=== PATIENT | female | born 1955 | race Caucasian/White ===

== ENCOUNTER 2018-12-20 13:17 | Inpatient (IN) ==
[2018-12-20] MEDS ORDERED: ASPIRIN CHEW 324 MG PO STA (14:57)
--- NOTE | 2018-12-20 15:18 | XRay Report ---
XR chest 1V portable HISTORY: 63 years-old Female Chest Pain acute atypical chest pain COMPARISON: Chest radiograph 02/16/2015 TECHNIQUE: Portable AP view the chest FINDINGS: Cardiomediastinal and hilar silhouettes are within normal limits. Calcified plaque of the thoracic ao rtic arch. No pneumothorax, pleural effusion, overt pulmonary edema or focal airspace consolidation. Mild right hemidiaphragmatic elevation. Degenerative changes of the shoulders and spine. IMPRESSION: No acute process. The above report was generated using voice recognition software. It may contain grammatical, syntax o r spelling errors. Electronically signed by: Triston Farooq M.D. 12/20/2018 3:17 PM
[2018-12-20 15:41] LABS: Basophils # (auto) 0.02 K/uL (0-0.2); Basophils % (auto) 0.3 %; Eosinophils # (auto) 0.08 K/uL (0-0.5); Eosinophils % (auto) 1.3 %; Hematocrit (blood only) 46.4 % (37-47); Hemoglobin 16.4 g/dL (12.0-16.0); Immature Granulocytes # (auto) 0.01 K/uL (0.00-0.02); Immature Granulocytes % (auto) 0.2 %; Lymphocytes % (auto) 30.2 %; Mean Corpuscular Hemoglobin 33.5 pg (25-34); Mean Corpuscular Hgb Conc 35.3 g/dL (32-36); Mean Corpuscular Volume 94.7 fL (80-100); Mean Platelet Volume 10.4 fL (7.4-10.4); Monocytes # (auto) 0.39 K/uL (0.11-0.59); Monocytes % (auto) 6.2 %; Neutrophils % (auto) 61.8 %; Platelet Count 218 K/uL (130-400); RDW Coefficient of Variation 13.6 % (11.5-14.5); RDW Standard Deviation 46.6 fL (36.4-46.3)
[2018-12-20 15:49] LABS: Albumin Level 3.9 gm/dl (3.4-5.0); BUN Creatinine Ratio 19.9 (10-20); Calcium 9.2 mg/dl (8.5-10.1); Creatinine Clr Calc Pharmacy 80.3 ml/min; Est GFR (African American) 85.8
[2018-12-20 15:50] LABS: Partial Thromboplastin Ratio 0.9; Partial Thromboplastin Time 24.9 Seconds (21.0-31.0); Prothrombin Time 10.3 Seconds (9.0-12.0)
[2018-12-20 16:08] LABS: Bilirubin,Total 0.5 mg/dl (0.2-1); Globulin 3.8 gm/dl (2.5-4.0); Total Protein 7.7 gm/dl (6.4-8.2); Troponin I 0.651 ng/ml (0-0.045)
--- NOTE | 2018-12-20 16:22 | History & Physical Report ---
Date of Service December 20, 2018 Assessment & Plan (1) NSTEMI (non-ST elevated myocardial infarction): This is a 63yo F with a PMH of OCHOA, venous insufficiency, DDD and other medical problems listed below who presents with chest pain beginning x 3 days and was found to have hypertensive urgency and elevated troponin. -Exertional chest pain for the past few days with radiation down arms into back -No personal history of CAD but father of [place] at age 72 -Troponin slightly elevated at 0.651. ED provider concerned for some some ST segment depressions in a posterior wall distribution that improved by the time of second EKG -Heparin initiated in ED. Plan to continue -Will add ntg 1" paste for chest pain and hypertension -Monitor on telemetry, trend troponin, baby aspirin -NPO after midnight -Cardiology consult (2) Hypertensive urgency: BP initially 205/105, has improved to 168/98. No documented history of HTN but states BP has been higher with weight gain since gastric bypass -No headache, nausea, vomiting or evidence of kidney injury -Chest pain persisted even after BP improved -Continue ntg paste, IV Labetalol PRN for SBP >170 DVT Ppx: IV heparin Code status: FULL per discussion with patient PCP: Used to follow with Dr. Beasley. Needs to establish with new PCP Dispo: Admitted to telemetry. Plan to return home once medically stable. Patient seen in collaboration with Dr. Avila. Please see addendum. History of Present Illness Chief Complaint: chest pain Primary Care Provider: NO PCP This is a 63yo F with a PMH of OCHOA, venous insufficiency, DDD and other medical problems listed below who presents with chest pain beginning x 3 days. Has had intermittent chest heaviness and pain in arms in the past but it has become more frequent and severe over the past few days. Describes chest pain as heaviness with radiation to back, in between shoulder blades as well as bilateral arms. Pain increases with exertion and improves with rest. Episodes last up to 30 minutes. Some associated diaphoresis. Denies nausea, vomiting or shortness of breath. Denies fever, chills, lightheadedness, dizziness, cough, wheezing, SOB, nausea, vomiting, abdominal pain, dysuria, diarrhea or constipation. Has intermittent leg swelling that is at baseline. Denies personal history of CAD but father from [place] at age 70. Allergies Allergy/AdvReac Type Severity Reaction Status Date / Time No Known Allergies Allergy Verified 12/20/18 15:45 Home Medications Home Medications Medication Instructions Recorded Confirmed Type calcium carbonate [Calcium 500] 500 mg PO DAILY 12/20/18 12/20/18 History multivitamin 1 tab PO DAILY 12/20/18 12/20/18 History Past Med/Surg History Medical History Slow transit constipation (Chronic) OCHOA (nonalcoholic steatohepatitis) (Chronic) Venous insufficiency (Chronic) Mixed incontinence (Chronic) Surgical History History of gastric bypass (Chronic) Status post right knee replacement (Chronic) Family History Other Diabetes Heart disease Social History Preferred Language: French Feels Safe at Home: Yes Smoking Status: Former smoker Smoking End Date: 1978 ; Hx Alcohol Use: Yes Alcohol Intake Frequency: Rarely Review of Systems Review of Systems: At least ten systems reviewed and negative except as noted in the HPI. Physical Exam Physical Exam: General Appearance: WD/WN, vitals as above, NAD, sitting up in bed, pleasant, conversing easily, obese Head: normocephalic, atraumatic Eyes: normal inspection, PERRL, conjunctivae normal, anicteric sclerae ENT: external ear and nose normal, oropharynx normal Neck: trachea midline, no thyromegaly normal visual inspection Respiratory: lungs clear to auscultation, no wheeze, rales, rhonchi. Normal insp/exp effort, no accessory muscle use Cardiovascular: regular rate, rhythm, no murmur, normal peripheral pulses, 1+ BLE edema. Vessels: no JVD or carotid bruit Chest: normal inspection of chest. No chest pain to palpation Abdomen/GI: normal bowel sounds, soft, nontender, no hepatosplenomegaly Extremities/Musculoskelatal: no cyanosis or clubbing, extremities motor strength 5/5 Neurologic: PERRL, EOMI, accommodation nl, no face palsy, no dysarthria CN's II-XI intact bilaterally and moves all extremities Psychiatric: A+Ox3, euthymic affect Skin: no rashes, normal color, warm/dry Results & Data Vital Signs (Past 12 Hours) Vital Signs Temp Pulse Pulse Resp BP BP Pulse Ox 12/20/18 14:49 71 18 144/90 H 95 12/20/18 13:26 36.7 C 80 22 203/105 H 96 Laboratory Results Short CBC 12/20/18 Range/Units 15:25 WBC 6.30 (4.8-10.8) K/uL Hgb 16.4 H (12.0-16.0) g/dL Hct 46.4 (37-47) % Plt Count 218 (130-400) K/uL BMP 12/20/18 15:25 Sodium 139 Potassium 4.0 Chloride 105 Carbon Dioxide 27 BUN 17 Creatinine 0.83 Glucose 97 Calcium 9.2 Cardiac Enzymes 12/20/18 Range/Units 15:25 Troponin I 0.651 H* (0-0.045) ng/ml Liver Function 12/20/18 Range/Units 15:25 Total Bilirubin 0.5 (0.2-1) mg/dl AST 27 (15-37) U/L ALT 37 (12-78) U/L Alkaline Phosphatase 130 H (45-117) U/L Albumin 3.9 (3.4-5.0) gm/dl Diagnostic Findings CXR: IMPRESSION: No acute process. ECG Rhythm: normal sinus Findings: + nonspecific-ST abn Change: no significant change Supervising Physician Co-Signing Physician Notes Patient is a 63-year-old female with history of Ochoa, chronic venous insufficiency and other problems presents with history of intermittent chest pain radiating to back, upper extremities which increases with exertion and decreases with rest since 3 days duration. Reports associated diaphoresis. Currently rates the pain as pressure-like sensation, 2/10 intensity. Troponin elevated at 0.65 while in ED. Initial EKG showed nonspecific ST and T wave abnormality. Patient is started on IV heparin while in ED for possible NSTEMI. On exam patient is obese, no apparent distress, normocephalic atraumatic, lungs are clear to auscultation, S1-S2, no murmur, abdomen soft nontender, grossly no focal neurological deficits, chronic venous stasis changes, 1+ bilateral lower extremity edema. Patient is admitted for management of chest pain rule out ACS. Agree with aspirin, IV heparin, nitroglycerin, cardiology consulted. Check resting echo. Hypertension likely contributing to chest pain. Labetalol as needed for hypertension. I personally reviewed the record. Patient is interviewed and examined at bedside. Patient's care is coordinated with Carol Pankaj PA-C. Please refer to the documentation above for details of patient's presentation and for discussion of other issues.
[2018-12-20] MEDS ORDERED: HEPARIN SOD (PORCINE) 1000 UNIT/ML 10 ML VIAL ONE (16:25)
[2018-12-20] MEDS: HEPARIN SODIUM/DEXTROSE 25,000 UNITS/500 ML BAG IV SCH (16:38)
--- NOTE | 2018-12-20 17:47 | Emergency Department Note ---
Entered by Sage Stacy acting as a scribe for Leland Lozano DO History of Present Illness General Chief complaint: Chest Pain Stated complaint: PAIN IN CHEST, ARMS, AND BACK Source: patient History of Present Illness Onset (ago): day(s) 3 Location: chest Pain Consistency: + intermittent Maximum Pain Intensity: 2 Quality: + other (chest pressure) Associated symptoms: + other (+bilateral arm pain; +back pain; -leg swelling; - abdominal pain ) The patient is a 63 year old female, with no significant past medical history, who presents to the Emergency Room with complaints of intermittent chest pressure over the last 3 days. The patient also reports of bilateral arm pain and neck pain. The patient states that nothing makes the pain better or worse. The patient denies taking anything for symptoms to this point. The patient states she currently does not have a PCP, as she notes her old PCP retired. The patient denies ever having a myocardial infarction, heart catheterization, or a stress test completed in the past. The patient also denies being on blood thinners. The patient notes very rare tobacco and alcohol use. The patient notes her legs are not more swollen than baseline, and the patient denies abdominal pain. Home Medications Home Medications Medication Instructions Recorded Confirmed Type calcium carbonate [Calcium 500] 500 mg PO DAILY 12/20/18 12/20/18 History multivitamin 1 tab PO DAILY 12/20/18 12/20/18 History Allergies Allergy/AdvReac Type Severity Reaction Status Date / Time No Known Allergies Allergy Verified 12/20/18 15:45 Past Med/Surg History Medical History Arthritis of right knee Family History Other No significant family history Social History Preferred Language: Spanish Feels Safe at Home: Yes Smoking Status: Former smoker Review of Systems See HPI for pertinent positives & negatives. and A total of 10 systems reviewed and were otherwise negative Physical Exam Vital Signs Vital Signs - 24 hr 12/20/18 13:26 12/20/18 14:49 12/20/18 14:57 Temperature 36.7 C Temperature Source Oral Sepsis Recent Fever Within 48 Hours No Sepsis New/Unexplained Change in Mental Status No Sepsis Action Taken by Nursing No Action Required Pulse Rate 80 74 Pulse Rate [Finger] 71 Pulse Rhythm [Finger] Regular Respiratory Rate 22 18 Respiratory Effort / Characteristics Non-Labored Non-Labored Respiratory Depth Normal Normal Respiratory Pattern Regular Regular Blood Pressure 203/105 H Blood Pressure [Right Arm] 144/90 H Blood Pressure Mean 137 Blood Pressure Mean [Right Arm] 108 Blood Pressure Position Sitting Blood Pressure Position [Right Arm] Sitting Pulse Oximetry 96 95 98 Oxygen Delivery Method Room Air Room Air Room Air Oxygen Flow Rate 0 12/20/18 16:00 Temperature Temperature Source Sepsis Recent Fever Within 48 Hours Sepsis New/Unexplained Change in Mental Status Sepsis Action Taken by Nursing Pulse Rate Pulse Rate [Finger] 80 Pulse Rhythm [Finger] Respiratory Rate 20 Respiratory Effort / Characteristics Respiratory Depth Respiratory Pattern Blood Pressure Blood Pressure [Right Arm] 166/90 H Blood Pressure Mean Blood Pressure Mean [Right Arm] 115 Blood Pressure Position Blood Pressure Position [Right Arm] Pulse Oximetry 96 Oxygen Delivery Method Room Air Oxygen Flow Rate GENERAL: Patient is awake, alert, and in no acute distress.Patient is resting comfortably and showing no signs of anxiety EYES: The conjunctivae are clear. The pupils are round and reactive. EARS, NOSE, MOUTH AND THROAT: The nose is without any evidence of any deformity. Mucous membranes are moist.Tongue is midline NECK: The neck is nontender and supple. RESPIRATORY: Normal respiratory effort is noted. There is no evidence of wheezing rhonchi or rales to auscultation. CARDIOVASCULAR: Regular rate and rhythm noted. There no murmurs rubs or gallops normal S1 normal S2 GASTROINTESTINAL: The abdomen is soft. Bowel sounds are present in all quadrants. Abdomen is nontender. MUSCULOSKELETAL/EXTREMITIES: There is no evidence of gross deformity. Full range of motion is noted in the hips and shoulders. SKIN: Pedal edema bilaterally with venous stasis changes noted. Skin was warm and dry. NEUROLOGIC: Patient is awake alert and oriented x3. Course 1455: Past medical records reviewed. The patient was evaluated in room B5. A complete history and physical exam was performed. 1603: I reviewed the patient's case with Dr. Avila-Jaqui King. Dr. Avila will evaluate the patient for further management. Consultations Consultation #1: I reviewed the patient's case with Dr. Avila-Jaqui King. Dr. Vangala will evaluate the patient for further management. Time: 16:03 Administered Medications Heparin Sodium/Dextrose (Heparin Sodium/Dextrose) 25,000 units in 500 mls @ 0.02 mls/hr IV .Q24H [facility]; Protocol Stop: 01/19/19 15:59 Last Admin: 12/20/18 16:38 Dose: 1,350 units/hr, 27 mls/hr Documented by: [id number] Cosigned by: [id number] Discontinued Medications Aspirin (Aspirin) 324 mg PO NOW STA Stop: 12/20/18 14:58 Last Admin: 12/20/18 16:38 Dose: 324 mg Documented by: [id number] Heparin Sodium (Porcine) (Heparin Iv Bolus) Confirm Administered Dose 10,000 units .ROUTE .[facility] Stop: 12/20/18 16:26 Last Admin: 12/20/18 16:38 Dose: 6,000 units Documented by: [id number] Cosigned by: [id number] Heparin Sodium/Dextrose () 1 ea IV NOW STA; Protocol Stop: 12/20/18 15:48 Last Admin: 12/20/18 16:42 Dose: Not Given Documented by: [id number] Medical Decision Making Differential Diagnosis Differential diagnosis: Etiologies such as cardiac ischemia, aortic dissection, pulmonary embolism, pneumonia, pneumothorax, musculoskeletal, infections, pericarditis, myocarditis, esophageal rupture, gastrointestinal, as well as others were entertained. Medical Records Attestation: I reviewed the patient's medical records. Home Medications Current Medication List: was personally reviewed by me Laboratory Data Attestation: I reviewed the patient's lab results. Result diagrams: 12/20/18 15:25 12/20/18 15:25 Lab Results 12/20/18 12/20/18 12/20/18 Range/Units 15:25 15:25 15:25 WBC 6.30 (4.8-10.8) K/uL RBC 4.90 (4.2-5.4) M/uL Hgb 16.4 H (12.0-16.0) g/dL Hct 46.4 (37-47) % MCV 94.7 (80-100) fL MCH 33.5 (25-34) pg MCHC 35.3 (32-36) g/dL RDW Std Deviation 46.6 H (36.4-46.3) fL RDW Coeff of Sim 13.6 (11.5-14.5) % Plt Count 218 (130-400) K/uL MPV 10.4 (7.4-10.4) fL Immature Gran % (Auto) 0.2 % Neut % (Auto) 61.8 % Lymph % (Auto) 30.2 % [place] % (Auto) 6.2 % Eos % (Auto) 1.3 % Baso % (Auto) 0.3 % Immature Gran # (Auto) 0.01 (0.00-0.02) K/uL Neut # (Auto) 3.90 (1.4-6.5) K/uL Lymph # (Auto) 1.90 (1.2-3.4) K/uL [place] # (Auto) 0.39 (0.11-0.59) K/uL Eos # (Auto) 0.08 (0-0.5) K/uL Baso # (Auto) 0.02 (0-0.2) K/uL PT 10.3 (9.0-12.0) Seconds INR 1.0 (0.9-1.1) APTT 24.9 (21.0-31.0) Seconds PTT Ratio 0.9 Sodium 139 (136-145) mmol/L Potassium 4.0 (3.5-5.1) mmol/L Chloride 105 (98-107) mmol/L Carbon Dioxide 27 (21-32) mmol/L Anion Gap 7.0 (3-11) BUN 17 (7-18) mg/dl Creatinine 0.83 (0.6-1.2) mg/dl Est Cr Clr Drug Dosing 80.3 ml/min Est GFR ( Amer) 85.8 Est GFR (Non-Af Amer) 74.0 BUN/Creatinine Ratio 19.9 (10-20) Glucose 97 (70-99) mg/dl Calcium 9.2 (8.5-10.1) mg/dl Total Bilirubin 0.5 (0.2-1) mg/dl AST 27 (15-37) U/L ALT 37 (12-78) U/L Alkaline Phosphatase 130 H (45-117) U/L POC Troponin I (0-0.045) ng/ml Troponin I 0.651 H* (0-0.045) ng/ml Total Protein 7.7 (6.4-8.2) gm/dl Albumin 3.9 (3.4-5.0) gm/dl Globulin 3.8 (2.5-4.0) gm/dl Albumin/Globulin Ratio 1.0 (0.9-2) Lipase 184 (73-393) U/L 12/20/18 Range/Units 15:30 WBC (4.8-10.8) K/uL RBC (4.2-5.4) M/uL Hgb (12.0-16.0) g/dL Hct (37-47) % MCV (80-100) fL MCH (25-34) pg MCHC (32-36) g/dL RDW Std Deviation (36.4-46.3) fL RDW Coeff of Sim (11.5-14.5) % Plt Count (130-400) K/uL MPV (7.4-10.4) fL Immature Gran % (Auto) % Neut % (Auto) % Lymph % (Auto) % [place] % (Auto) % Eos % (Auto) % Baso % (Auto) % Immature Gran # (Auto) (0.00-0.02) K/uL Neut # (Auto) (1.4-6.5) K/uL Lymph # (Auto) (1.2-3.4) K/uL [place] # (Auto) (0.11-0.59) K/uL Eos # (Auto) (0-0.5) K/uL Baso # (Auto) (0-0.2) K/uL PT (9.0-12.0) Seconds INR (0.9-1.1) APTT (21.0-31.0) Seconds PTT Ratio Sodium (136-145) mmol/L Potassium (3.5-5.1) mmol/L Chloride (98-107) mmol/L Carbon Dioxide (21-32) mmol/L Anion Gap (3-11) BUN (7-18) mg/dl Creatinine (0.6-1.2) mg/dl Est Cr Clr Drug Dosing ml/min Est GFR ( Amer) Est GFR (Non-Af Amer) BUN/Creatinine Ratio (10-20) Glucose (70-99) mg/dl Calcium (8.5-10.1) mg/dl Total Bilirubin (0.2-1) mg/dl AST (15-37) U/L ALT (12-78) U/L Alkaline Phosphatase (45-117) U/L POC Troponin I 0.49 H (0-0.045) ng/ml Troponin I (0-0.045) ng/ml Total Protein (6.4-8.2) gm/dl Albumin (3.4-5.0) gm/dl Globulin (2.5-4.0) gm/dl Albumin/Globulin Ratio (0.9-2) Lipase (73-393) U/L Imaging Data Radiologist's Impression: Radiology results as stated below per my review and the radiologist's interpretation: XR chest 1V portable HISTORY: 63 years-old Female Chest Pain acute atypical chest pain COMPARISON: Chest radiograph 02/16/2015 TECHNIQUE: Portable AP view the chest FINDINGS: Cardiomediastinal and hilar silhouettes are within normal limits. Calcified plaque of the thoracic aortic arch. No pneumothorax, pleural effusion, overt pulmonary edema or focal airspace consolidation. Mild right hemidiaphragmatic elevation. Degenerative changes of the shoulders and spine. IMPRESSION: No acute process. The above report was generated using voice recognition software. It may contain grammatical, syntax or spelling errors. Electronically signed by: Triston Farooq M.D. 12/20/2018 3:17 PM ECG Data Attestation: I personally reviewed and interpreted this ECG as follows: Indication: chest pain Rate (beats per minute): 76 Rhythm: normal sinus Findings: + LBBB and + ST depression; no PVC Comparison ECG Date: from (02/16/15) Change: the following changes noted (Ischemic changes are new) Additional Comments: REPEAT ECG: NSR, rate of 71. No ectopy. No acute ST segments. Improvement of earlier ST depression compared to earlier tracing. Blood Pressure Blood Pressure Findings: Elevated blood pressure Blood Pressure Disposition: further management by hospitalist ANDRE Perez The patient is a 63-year-old female who presented to the emergency department for an evaluation of intermittent chest pain. The patient describes chest pain across the chest as well as into both shoulders. The pain is intermittent and not always exertional. The patient had an EKG which showed initially some ST segment depressions in a posterior wall distribution. She was treated with aspirin in the emergency department. She was reevaluated multiple times. Her second EKG did reveal some improvement in the ST segment abnormality's. The patient was reevaluated multiple times. The patient was found to have a mild elevation in her troponin. For this reason she was started on IV heparin. I discussed patient's laboratory and radiographic studies with her. Because of her findings I also discussed this case with the on-call [facility] hospitalist group. They have agreed to evaluate the patient in the emergency department for further management and disposition. Impression & Plan Chest pain, Angina pectoris, unstable, Abnormal ECG, Elevated troponin Critical Care Time Critical Care Time: Yes Total Critical Care Time: 60 I have personally spent 60 minutes of critical care time in the direct management of this patient. This includes bedside care, interpretation of diagnostic studies, and testing, discussion with consultants, patient, and family members, and other required patient management activities. This 60 minutes is in excess of all separately billable procedures. Discharge Plan Visit Data Chief Complaint: Chest Pain Stated Complaint: PAIN IN CHEST, ARMS, AND BACK ED Provider: Leland Lozano Discharge Problem: Chest pain, Angina pectoris, unstable, Abnormal ECG, Elevated troponin Patient Disposition: Being Evaluated by Hospitalist Forms Stand Alone Forms: Call Back Authorization, [facility] Prescriptions Prescriptions: No Action multivitamin Tablet 1 tab PO DAILY RF: 0 calcium carbonate [Calcium 500] 500 mg calcium (1,250 mg) Tablet 500 mg PO DAILY RF: 0 Referrals Referrals: PCP,NO [Primary Care Provider] - Discharge Problem: Chest pain Qualifiers: Chest pain type: unspecified Qualified Code(s): R07.9 - Chest pain, unspecified The scribe's documentation has been prepared under my direction and personally reviewed by me in its entirety. I confirm that the note above accurately reflects all work, treatment, procedures, and medical decision making performed by me.
[2018-12-20] MEDS ORDERED: POLYETHYLENE (MIRALAX) 17 GM PACK PO PRN (20:37)
[2018-12-20] MEDS ORDERED: ONDANSETRON INJ 2 MG/ML 2 ML VIAL IV PRN (20:37)
[2018-12-20] MEDS ORDERED: LABETALOL HCL IV 5 MG/ML 20ML IV PRN (20:37)
[2018-12-20] MEDS ORDERED: ACETAMINOPHEN 325 MG TAB PO PRN (20:37)
[2018-12-20] MEDS ORDERED: PNEUMOCOCCAL POLYSACCHARIDES 25 MCG/0.5 ML VIAL/SYR IM ONE (21:15)
[2018-12-20] MEDS ORDERED: INFLUENZA VACCINE HIGH DOSE 65+ 0.5 ML SYR IM ONE (21:15)
[2018-12-20] MEDS ORDERED: PNEUMOCOCCAL ADMINISTRATION CHARGE ONE (21:15)
[2018-12-20] MEDS ORDERED: INFLUENZA ADMINISTRATION CHARGE ONE (21:15)
[2018-12-20] MEDS: NITROGLYCERIN 2% OINTMENT 30GM TUBE EXT SCH ×2 (21:25→23:28)
[2018-12-20 22:48] LABS: Partial Thromboplastin Time 54.6 Seconds (21.0-31.0)
[2018-12-21 03:54] LABS: Hematocrit (blood only) 42.9 % (37-47); Hemoglobin 14.6 g/dL (12.0-16.0); Mean Corpuscular Hemoglobin 32.1 pg (25-34); Mean Corpuscular Volume 94.3 fL (80-100); Mean Platelet Volume 10.2 fL (7.4-10.4); Platelet Count 209 K/uL (130-400); RDW Coefficient of Variation 13.4 % (11.5-14.5); RDW Standard Deviation 46.3 fL (36.4-46.3); Red Blood Count 4.55 M/uL (4.2-5.4); White Blood Count 5.48 K/uL (4.8-10.8)
[2018-12-21 04:16] LABS: BUN Creatinine Ratio 22.8 (10-20); Calcium 8.4 mg/dl (8.5-10.1); Creatinine Clr Calc Pharmacy 82.8 ml/min; Est GFR (African American) 89.7; Est GFR (Non-African American) 77.4; Potassium 3.7 mmol/L (3.5-5.1)
[2018-12-21 04:35] LABS: Thyroid Stimulating Hormone 3.88 uIu/ml (0.300-4.500); Troponin I 1.03 ng/ml (0-0.045)
[2018-12-21] MEDS: NITROGLYCERIN 2% OINTMENT 30GM TUBE EXT SCH (05:41)
[2018-12-21 06:18] LABS: Estimated Average Glucose 108 mg/dl; Hemoglobin A1C 5.4 % (4.5-5.6)
[2018-12-21 06:27] LABS: Partial Thromboplastin Ratio 1.8
[2018-12-21 06:29] LABS: Partial Thromboplastin Time 49.9 Seconds (21.0-31.0)
[2018-12-21] MEDS ORDERED: PERFLUTREN LIPID MICROSPHERE (DEFINITY) IV ONE (07:40)
[2018-12-21] MEDS: CALCIUM CARBONATE 1250MG TAB PO SCH (08:28)
[2018-12-21] MEDS: ASPIRIN 81 MG ECTAB PO SCH (08:29)
[2018-12-21] MEDS: MULTIVITAMIN TAB PO SCH (08:29)
[2018-12-21] MEDS: HEPARIN SODIUM/DEXTROSE 25,000 UNITS/500 ML BAG IV SCH (10:04)
--- NOTE | 2018-12-21 10:17 | Cardiology Consultation ---
Date of Consultation December 21, 2018 Assessment & Plan (1) NSTEMI (non-ST elevated myocardial infarction): She is currently pain-free however her troponin did spike above 1 There are no significant ischemic EKG changes and no wall motion abnormalities on echocardiogram. However, given her description of symptoms and the troponin elevation I am suspicious that this may represent unstable angina so I believe the most prudent course of action at this point would be to proceed directly with cardiac catheterization. The procedure along with the risks and alternatives were discussed with her she states that she understands, she is excepting of the risk and agrees to proceed with cardiac catheterization. She will remain n.p.o. and catheterization will be performed today. Further recommendations to follow the results of cath (2) Hypertensive urgency: This could obviously be the possible cause of her chest discomfort and mild troponin bump however, given the fact that her blood pressure dropped so significantly with just nitroglycerin again I believe would be prudent to evaluate her coronary anatomy. Further medication adjustments will be made after the results of the cardiac cath. History of Present Illness Reason for Consultation: NSTEMI Attending Physician: Sedrick Avila MD History of Present Illness It was my pleasure to see Mrs. Box in consultation today December 21, 2018. She is a very pleasant 63-year-old woman who has not seen a physician in over 5 years. She presented to [facility] emergency department on 12/20/2018 with complaints of chest discomfort and dyspnea on exertion. She states that approximately 3 days prior to presentation she started noticing a pressure sensation that started in her chest radiate straight through to her back and then down both arms. She states that this would happen both at rest and with exertion but did seem to happen more with exertion. She also noticed that she was significantly short of breath with exertion. She notes that she went on a normal walk with her that she normally does without issue and she had to stop 4 times to catch her breath. Urgency department and upon presentation was found to be severely significantly hypertensive at 205/105 however the pressure quickly improved with sublingual nitroglycerin to 160/98. She was then placed on Nitropatch overnight and has not had any recurrences of discomfort in her pressure this morning is 103/65 without any other antihypertensive agents being given. Again she is been symptom-free overnight and currently feels well. She denies any previous similar events and states otherwise she has been feeling well as of late. Allergies Allergy/AdvReac Type Severity Reaction Status Date / Time No Known Allergies Allergy Verified 12/20/18 15:45 Home Medications Home Medications Medication Instructions Recorded Confirmed Type calcium carbonate [Calcium 500] 500 mg PO DAILY 12/20/18 12/20/18 History multivitamin 1 tab PO DAILY 12/20/18 12/20/18 History Patient History Medical History Slow transit constipation (Chronic) HERRON (nonalcoholic steatohepatitis) (Chronic) Venous insufficiency (Chronic) Mixed incontinence (Chronic) Surgical History History of gastric bypass (Chronic) Status post right knee replacement (Chronic) Family History Other Diabetes Heart disease Social History Preferred Language: Fijian Communication Ability: Effective Turbogenerator Operator Required: No Beliefs That Will Affect Care: None Current Living Situation: Spouse and Family Current Living Situation Comment: Daughter. Other Information That Helps Us Care for You: No Feels Safe at Home: Yes Safety Concerns: Feels Safe At This Time Smoking Status: Never smoker Do You Dip or Chew Tobacco: No ; Smoking End Date: 1978 ; Hx Alcohol Use: Yes Alcohol type: beer and wine Alcohol Intake Frequency: Rarely Hx Substance Use: No Review of Systems Review of Systems: All systems reviewed & are unremarkable except as noted in HPI & below Physical Exam Physical Exam: General: Awake, alert and oriented x 3. No acute distress. HEENT: Normocephalic, atraumatic. Pupils equal, round and reactive to light and accommodation. Extraocular muscles are intact. Anicteric sclera. Moist mucous membranes. Neck: No JVD. No bruit. Cardiovascular: Regular. Positive S-4. Normal S-1 and S-2. No S-3. No murmurs or rubs. Pulmonary: Clear to auscultation B/L. No rales, rhonchi or wheezing Abdomen: Bowel sounds x 4, soft. No rebound, guarding or tenderness. No organomegaly. Extremities: No clubbing, cyanosis or edema. +2 pedal pulses bilaterally. Skin: Warm and dry. Results & Data Vital Signs (Past 12 Hours) Vital Signs Temp Pulse Pulse Resp BP BP Pulse Ox 12/21/18 09:50 80 12/21/18 07:23 36.6 C 78 16 103/65 94 12/21/18 03:12 36.7 C 86 18 107/71 94 12/21/18 01:31 68 12/20/18 23:08 36.5 C 72 18 125/76 95
[2018-12-21] MEDS ORDERED: NITROGLYCERIN/D5W 100MCG/ML 20ML SYR ONE (12:04)
[2018-12-21] MEDS ORDERED: MIDAZOLAM HCL 1 MG/ML 2ML VIAL ONE (12:04)
[2018-12-21] MEDS ORDERED: HEPARIN (PORCINE) 1000 UNIT/ML 10 ML (CATH LAB USE ONLY) ONE (12:04)
[2018-12-21] MEDS ORDERED: fentaNYL citrate 100 MCG/2 ML VIAL ONE (12:04)
[2018-12-21] MEDS ORDERED: NiCARDipine HCL INJ 2.5 MG/ML 10 ML AMP ONE (12:04)
--- NOTE | 2018-12-21 13:24 | Pre Anesthesia Assessment ---
Date of Service December 21, 2018 Pre Sedation Assessment Vital Signs Temp Pulse Pulse Resp BP BP BP 12/21/18 09:50 80 12/21/18 07:23 97.9 F 78 16 103/65 12/21/18 03:12 98.1 F 86 18 107/71 12/21/18 01:31 68 12/20/18 23:08 97.7 F 72 18 125/76 12/20/18 20:50 79 12/20/18 20:30 98.1 F 76 18 148/90 H 12/20/18 20:00 76 20 12/20/18 19:14 96 H 19 169/118 H 12/20/18 19:00 81 15 169/118 H 12/20/18 18:39 75 27 H 168/98 H 12/20/18 18:00 72 72 20 168/98 H 168/88 H 12/20/18 17:00 72 22 12/20/18 16:41 74 22 166/90 H 12/20/18 16:00 69 80 24 166/90 H 12/20/18 15:51 67 22 12/20/18 15:30 74 22 155/103 H 12/20/18 14:57 74 12/20/18 14:49 71 18 144/90 H 12/20/18 13:26 98.1 F 80 22 203/105 H Pulse Ox 12/21/18 09:50 12/21/18 07:23 94 12/21/18 03:12 94 12/21/18 01:31 12/20/18 23:08 95 12/20/18 20:50 12/20/18 20:30 95 12/20/18 20:00 12/20/18 19:14 12/20/18 19:00 12/20/18 18:39 12/20/18 18:00 98 12/20/18 17:00 97 12/20/18 16:41 97 12/20/18 16:00 97 12/20/18 15:51 96 12/20/18 15:30 97 12/20/18 14:57 98 12/20/18 14:49 95 12/20/18 13:26 96 Cardiovascular RRR, no murmur, no edema Respiratory normal respiratory effort, lungs clear to auscultation Pre-Sedation Airway Assessment Smoking Status: Never smoker Hx Sleep Apnea: No Hx Difficult Intubation: No Short, Thick Neck: No Oral Cavity: + WNL Mallampati Class: IV ASA: ASA3 NPO Status Date of Last Intake of Fluids: 12/20/18 Time of Last Intake of Fluids: 22:00 Date of Last Intake of Solid Food: 12/20/18 Time of Last Intake of Solid Foods: 22:00 Procedure Planning Contraindications for Sedation: none Current Medications Reviewed: Yes Notes The planned sedation has been discussed with the patient. Informed Consent was obtained. I have identified the patient, determined the appropriateness of sedation and have assessed the patient immediately prior to the procedure. All medicine(s) and interventions are by my order.
--- NOTE | 2018-12-21 13:25 | Post Anesthesia Assessment ---
Date of Service December 21, 2018 Post Sedation Assessment Vital Signs Temp Pulse Pulse Resp BP BP BP 12/21/18 09:50 80 12/21/18 07:23 97.9 F 78 16 103/65 12/21/18 03:12 98.1 F 86 18 107/71 12/21/18 01:31 68 12/20/18 23:08 97.7 F 72 18 125/76 12/20/18 20:50 79 12/20/18 20:30 98.1 F 76 18 148/90 H 12/20/18 20:00 76 20 12/20/18 19:14 96 H 19 169/118 H 12/20/18 19:00 81 15 169/118 H 12/20/18 18:39 75 27 H 168/98 H 12/20/18 18:00 72 72 20 168/98 H 168/88 H 12/20/18 17:00 72 22 12/20/18 16:41 74 22 166/90 H 12/20/18 16:00 69 80 24 166/90 H 12/20/18 15:51 67 22 12/20/18 15:30 74 22 155/103 H 12/20/18 14:57 74 12/20/18 14:49 71 18 144/90 H 12/20/18 13:26 98.1 F 80 22 203/105 H Pulse Ox 12/21/18 09:50 12/21/18 07:23 94 12/21/18 03:12 94 12/21/18 01:31 12/20/18 23:08 95 12/20/18 20:50 12/20/18 20:30 95 12/20/18 20:00 12/20/18 19:14 12/20/18 19:00 12/20/18 18:39 12/20/18 18:00 98 12/20/18 17:00 97 12/20/18 16:41 97 12/20/18 16:00 97 12/20/18 15:51 96 12/20/18 15:30 97 12/20/18 14:57 98 12/20/18 14:49 95 12/20/18 13:26 96 Recovery Score Activity: Moves 4 extremities Respiration: Deep Breath/Cough Circulation: +/-20% PreAnes Value Consciousness: Fully Awake Oxygen Saturation: O2 needed for >90% Discharge Sedation Level of Care: Fast Track Phase II Post Sedation Plan On clinical assessment, the patient appears to have tolerated the sedation without complications. Patient is recovering as anticipated. Patient will continue to be monitored by nursing and may be discharged when sedation discharge criteria are met per below protocol. Upon Completions of procedure and additional 15 minutes continue every 5 minute vital signs and the P.A.R. score; then discharge to a Phase I or Fast Track to Phase II per the following guidelines: * Discharge Patient to appropriate Phase II area if PAR is 8 or greater or return to pre- procedure baseline. The post - procedure orders will be as directed. * If PAR score is less than 8 or not return to pre-procedure baseline then patient will follow Phase I monitoring till PAR is reached for Phase II. The Phase I may be done in procedure room or may call to secure a Phase I area. * If naloxone or flumazenil are used for reversal, hold in Phase I for continued monitoring from when last reversal dose was given for a minimum of 60 minutes or longer pending the nurse and/or physician discretion of patient condition before discharge to Phase II. Please call the Sedation Physician to re-evaluate and complete post-note for discharge to Phase II area. Do NOT discharge from procedure sedation or Phase 1 until post- sedation evaluation note is complete by procedure /sedation MD Sedation Discharge Instructions to be given to the patient at discharge to home.
[2018-12-21] MEDS ORDERED: SODIUM CHLORIDE 0.9% 1000ML 1,000 ML IV SCH (13:30)
--- NOTE | 2018-12-21 13:32 | Cardiac Catheterization ---
ACC Data: Digital Cartographic Technician Cardiac Status Clinical evaluation leading to the procedure CAD Presenation: Non STEMI Anginal Classification: CCS IV Heart Failure: No Cardiogenic Shock within 24 Hours: No Cardiac Arrest within 24 Hours: No Imaging Studies Past 6 Months: Yes Stress Studies Past 6 Months: No Diagnostic Physicians Name: Shawn Pires MD Status: Elective Closure Device Percutaneous Entry Location: Radial Closure Device: Radial Band Recommendations: CABG Intraprocedure Events Significant Disection: No Perforation: No Cardiac Cath Procedure Full Procedure Date December 21, 2018 Pre-Procedure Diagnosis Pre-Procedure Diagnosis: Non STEMI AUC Score AUC Score: 8 Post-Procedure Diagnosis Post-Procedure Diagnosis: Severe CAD and Normal Intracardiac Pressures Procedure(s) Performed Procedure(s) Performed: Coronary Angiography and Left Heart Cath Airplane Designer Shawn Pires MD Land Agent(s) Matt Estimated Blood Loss Estimated Blood Loss: 10 Medication(s) Medication(s): Nicardipine and Versed Summary of Findings Indication: High risk NSTEMI Access: 6 Fr right radial artery Catheters: KALEIGH Lal Findings: LM -40% distal left main LAD -moderate caliber vessel, calcified mild proximal disease, 95% focal mid stenosis just after takeoff of small second diagonal, distal luminal irregularities. Small second diagonal with severe ostial stenosis Circumflex -moderate caliber vessel, 95% focal mid segment stenosis prior to takeoff of moderate caliber OM 2. OM 2, OM 3 without significant disease RCA -moderate caliber, dominant, 50 to 60% lateproximal stenosis, 60% distal stenosis just prior to bifurcation with PDA, posterior AV branch Arterial Closure: TR band Summary: 1. Severe multi-vessel coronary artery disease -40% distal left main 95% mid LAD 95% mid circumflex 50 to 60% lateproximal RCA and 60% distal RCA stenosis prior to bifurcation with PDA 2. Normal intracardiac filling pressure Recommendations: Cardiac surgery evaluation for possible bypass surgery Hemodynamics Rest Ao:: 103/70/83 Final Ao: 149/92/118 LV: 115/12 Recommendations Recommendations: CABG Specimens Specimens: None Radiation Exposure (mGy) 1546 Contrast (mls) 60 Fluids (cc crystalloids) Fluids (cc crystalloids): 69 Drains Drains: None Anesthesia Moderate Procedural Complication(s) None Disposition PCU I attest to the content of the Intraoperative Record and any orders documented therein. Any exceptions are noted below.
[2018-12-21] MEDS ORDERED: METOPROLOL TARTRATE 25 MG TAB PO ONE (14:00)
[2018-12-21] MEDS: ISOSORBIDE MONO EXTENDED REL 30 MG TABCR PO SCH (15:42)
--- NOTE | 2018-12-21 16:46 | Hospitalist Progress Note ---
Date of Service December 21, 2018 Assessment & Plan (1) NSTEMI (non-ST elevated myocardial infarction): Patient is a 63 yr female with H/O HERRON, venous insufficiency, DDD and other medical problems listed below who presents with chest pain beginning x 3 days and was noted to have hypertensive urgency and elevated troponin. NSTEMI Presented with exertional chest pain for the past few days with radiation down arms into back Positive family history--father of ID at age 72 Troponin elevated S/P Cardiac Cath: Multivessel CAD Heparin ggt was discontinued Needs CABG Started on Aspirin, Metoprolol, Isosorbide Appreciate Cardiology help If patient develops recurrence of chest pain --will need transfer to tertiary hospital for CABG ECHO:Normal LV size and wall thickness, EF> 70%, no segmental LV wall motion abnormality, Grade I diastolic dysfunction (2) Hypertensive urgency: BP 205/105 on presentation NTG discontinued Continue Metoprolol, Isosorbide Monitor Morbid Obesity BMI: 44 DVT Px: IV heparin...>> SCDs for now Code status: FULL Disposition: To be determined Subjective Patient is seen and examined at bedside Patient states chest pain resolved after being started on IV heparin yesterday Offers no complains this morning Denies chest pain, SOB, dizziness, nausea abd pain On Heparin ggt No bleeding issues Planned for Cardiac Cath today Review of Systems Review of Systems: All systems reviewed & are unremarkable except as noted in HPI & below Physical Exam Physical Exam: Physical Exam: Vitals signs as noted above General Appearance:Obese, no apparent distress Head: normocephalic, Atraumatic Eyes: normal inspection, EOMI Neck: supple, Trachea midline Respiratory/Chest: Normal breath sounds, CTA Cardiovascular: S1, S2, No murmur Abdomen/GI:Soft, Non tender, Bowel sounds present Extremities/Musculoskelatal:normal inspection, chronic venous stasis changes, 1+ bilateral lower extremity edema. Neurologic/Psych:AAOX3, grossly no focal neurological deficits Skin: normal color, warm Results & Data Vital Signs (Past 12 Hours) Vital Signs Temp Pulse Pulse Resp BP BP Pulse Ox 12/21/18 15:10 74 18 125/79 95 12/21/18 14:40 79 17 135/81 95 12/21/18 14:10 76 17 137/84 95 12/21/18 13:55 70 17 121/80 93 12/21/18 13:40 73 17 148/87 H 94 12/21/18 13:25 75 18 133/81 94 12/21/18 09:50 80 12/21/18 07:23 36.6 C 78 16 103/65 94 Laboratory Results Short CBC 12/21/18 Range/Units 03:41 WBC 5.48 (4.8-10.8) K/uL Hgb 14.6 (12.0-16.0) g/dL Hct 42.9 (37-47) % Plt Count 209 (130-400) K/uL BMP 12/21/18 03:41 Sodium 141 Potassium 3.7 Chloride 109 H Carbon Dioxide 26 BUN 18 Creatinine 0.80 Glucose 105 H Calcium 8.4 L Cardiac Enzymes 12/20/18 12/21/18 Range/Units 22:03 03:41 Troponin I 1.080 H* 1.030 H* (0-0.045) ng/ml
[2018-12-21] MEDS: METOPROLOL TARTRATE 25 MG TAB PO SCH (21:29)
--- NOTE | 2018-12-21 21:36 | Ultrasound Report ---
US carotid doppler BI CLINICAL HISTORY: 63 years-old Female with preop cabg. Preoperative exam. COMPARISON: None TECHNIQUE: Multiple real time sonographic images of the carotid bifurcations were obtained assessing woo scale, color Doppler and spectral wave form appearance FINDINGS: RIGHT CAROTID: The peak systolic velocity within the ICA is measured at122 cm/sec. The end diastoli c velocity measured 39.7 cm/sec. The ICA to CCA ratio measured 1.1 which correlates with a stenosis of 0-50%. Extensive mixed plaque of the right carotid bulb and proximal right ICA. LEFT CAROTID: The peak systolic velocity within the proximal left ICA is measured at298 cm/sec. The end diastolic velocity measured 54.9 cm/sec. The ICA to CCA ratio measured 4.5 which correlates with a stenosis of greater than 70%. Peak systolic velocity within the left common carotid artery is marcie ured at 67 cm/s, end-diastolic velocity 16 cm/s. Extensive mixed plaque of the left carotid bulb and proximal left ICA There is normal antegrade vertebral flow bilaterally. IMPRESSION: 1. Extensive mixed plaque of the bilateral carotid bulbs and proximal internal carotid arteries resu lts in 0-50% stenosis on the right and greater than 70% stenosis on the left. 2. Normal antegrade vertebral flow bilaterally. The above report was generated using voice recognition software. It may contain grammatical, syntax o r spelling errors. Electronically signed by: Triston Farooq M.D. 12/21/2018 9:34 PM
[2018-12-22 06:37] LABS: Hematocrit (blood only) 40.9 % (37-47); Mean Corpuscular Hemoglobin 32.6 pg (25-34); Mean Corpuscular Hgb Conc 34.2 g/dL (32-36); Mean Corpuscular Volume 95.1 fL (80-100); Mean Platelet Volume 10.4 fL (7.4-10.4); Platelet Count 205 K/uL (130-400); RDW Coefficient of Variation 13.6 % (11.5-14.5); RDW Standard Deviation 47.1 fL (36.4-46.3); White Blood Count 6.09 K/uL (4.8-10.8)
[2018-12-22 07:11] LABS: BUN Creatinine Ratio 23.4 (10-20); Calcium 8.2 mg/dl (8.5-10.1); Est GFR (African American) 105.4; Est GFR (Non-African American) 90.9; Potassium 3.7 mmol/L (3.5-5.1)
[2018-12-22] MEDS ORDERED: ACETAMINOPHEN 325 MG TAB PO PRN (08:06)
[2018-12-22] MEDS: METOPROLOL TARTRATE 25 MG TAB PO SCH (08:15)
[2018-12-22] MEDS: ISOSORBIDE MONO EXTENDED REL 30 MG TABCR PO SCH (08:15)
[2018-12-22] MEDS: MULTIVITAMIN TAB PO SCH (08:16)
[2018-12-22] MEDS: CALCIUM CARBONATE 1250MG TAB PO SCH (08:16)
[2018-12-22] MEDS: ASPIRIN 81 MG ECTAB PO SCH (08:17)
[2018-12-22] MEDS ORDERED: METOPROLOL TARTRATE 25 MG TAB PO ONE (10:06)
--- NOTE | 2018-12-22 10:28 | Cardiology Progress Note ---
Date of Service December 22, 2018 Assessment & Plan (1) NSTEMI (non-ST elevated myocardial infarction): has remained pain free overnight tolerating addition of metoprolol and imdur will uptitrate metoprolol to 25mg bid now will require SL nitro PRN on discharge. cath reveled multivessel disease including left main disease Severe multi-vessel coronary artery disease -40% distal left main 95% mid LAD 95% mid circumflex 50 to 60% lateproximal RCA and 60% distal RCA stenosis prior to bifurcation with PDA if remains pain free after ambulating in halls will discharge to home and arrange outpatient CT surgery eval if has recurrent symptoms with ambulation despite medical therapy, will require hospital to hospital transfer cont current doses of aspiring, metoprolol, imdur and atorvastatin on discharge my office will arrange outpatient CT surgery eval and f/u with me 2 weeks post-operatively (2) Hypertensive urgency: now well controlled after addition of metoprolol and imdur would not hesitate to start corry/arb either if continues to increase Subjective Pt seen and examined with family at bedside, states that she feels well. Has been ambulating in room without complaint. Has not had any recurrence chest pain or sob overnight. Denies palpitations, lightheadedness or dizziness. Tolerating meds well. Tele reviewed: sinus rhythm without arrhythmia or significant ectopy. Review of Systems Review of Systems: All systems reviewed & are unremarkable except as noted in HPI & below Physical Exam Physical Exam: General: Awake, alert and oriented x 3. No acute distress. HEENT: Normocephalic, atraumatic. Pupils equal, round and reactive to light and accommodation. Extraocular muscles are intact. Anicteric sclera. Moist mucous membranes. Neck: No JVD. No bruit. Cardiovascular: Regular. Positive S-4. Normal S-1 and S-2. No S-3. No murmurs or rubs. Pulmonary: Clear to auscultation B/L. No rales, rhonchi or wheezing Abdomen: Bowel sounds x 4, soft. No rebound, guarding or tenderness. No organomegaly. Extremities: No clubbing, cyanosis or edema. +2 pedal pulses bilaterally. Skin: Warm and dry. Results & Data Vital Signs (Past 12 Hours) Vital Signs Temp Pulse Resp BP Pulse Ox 12/22/18 07:39 36.9 C 93 H 20 131/80 94 12/22/18 03:20 36.7 C 78 17 125/65 94 12/21/18 23:18 37.1 C 74 17 113/69 96
--- NOTE | 2018-12-22 12:57 | Hospitalist Progress Note ---
Date of Service December 22, 2018 Assessment & Plan (1) NSTEMI (non-ST elevated myocardial infarction): -Patient presented to [facility] with chest discomfort and NSTEMI (Non ST Elevation Myocardial Infarction) ; was initially started on heparin IV with aspirin, metoprolol, isosorbide -ECHO:Normal LV size and wall thickness, EF> 70%, no segmental LV wall motion abnormality, Grade I diastolic dysfunction -Cardiac cath revealed multivessel coronary artery disease along with left main disease -Cardiology have called [facility] appointment line to set up CT surgery consultation for CABG (Coronary artery bypass surgery) as an outpatient Patient's discharge medications of aspirin 81 mg daily, metoprolol tartrate 25 mg twice a day, and isosorbide mononitrate 30 mg daily, atorvastatin 40 mg daily sent electronically to [facility] [address] [place] [id number] Other follow ups 12/27/2018 1:00 PM Provider Siobhan Thomas MD Department Internal Medicine [facility] Address: [address] [place] [id number] (If blood pressure is elevated while on discharge medication regimen, then primary care doctor can add KUMAR inhibitor medication) 01/10/2019 2:00 PM Provider Bobby Olivo Jr., DO Department Cardiology, [facility] Address: [address] [place] [id number] (2) Multiple vessel coronary artery disease: Cardiac Cath on 12/21/18 Findings: LM -40% distal left main LAD -moderate caliber vessel, calcified mild proximal disease, 95% focal mid stenosis just after takeoff of small second diagonal, distal luminal irregularities. Small second diagonal with severe ostial stenosis Circumflex -moderate caliber vessel, 95% focal mid segment stenosis prior to takeoff of moderate caliber OM 2. OM 2, OM 3 without significant disease RCA -moderate caliber, dominant, 50 to 60% lateproximal stenosis, 60% distal stenosis just prior to bifurcation with PDA, posterior AV branch (Summary: 1. Severe multi-vessel coronary artery disease -40% distal left main 95% mid LAD 95% mid circumflex 50 to 60% lateproximal RCA and 60% distal RCA stenosis prior to bifurcation with PDA) (3) Hypertensive urgency: -Blood Pressure 205/105 on presentation -hypertensive urgency resolved with anti-hypertensives -currently the blood pressure is controlled Morbid Obesity BMI: 44 Code status: FULL Discharge Diagnosis: NSTEMI (non-ST elevated myocardial infarction); Hypertensive Urgency, Multiple vessel Coronary artery disease Subjective No chest pain. no shortness of breath. patient able to ambulate without discomfort. able to eat the meal. no vomiting. no abdominal pain.no dizziness. no headache. discharge plans discussed at length Physical Exam Constitutional: WD/WN, vitals as above Eyes: PERRL, conjunctivae normal, anicteric sclerae EOM intact bilaterally ENMT: external ear and nose normal, oropharynx normal Neck: normal visual inspection Respiratory: normal respiratory effort, lungs clear to auscultation Cardiovascular: Rate/Rhythm: regular rhythm and + bradycardic Gastrointestinal (Abdomen): normal bowel sounds, soft, nontender, no hepatosplenomegaly Musculoskeletal: Head/Neck/Chest: normocephalic and head atraumatic Neurologic: PERRL, EOMI, accommodation nl, no face palsy, no dysarthria CN's II-XI intact bilaterally Psychiatric: A+Ox3, euthymic affect Results & Data Vital Signs (Past 12 Hours) Vital Signs Temp Pulse Resp BP Pulse Ox 12/22/18 11:49 36.7 C 62 20 123/72 93 12/22/18 07:39 36.9 C 93 H 20 131/80 94 12/22/18 03:20 36.7 C 78 17 125/65 94
[2018-12-22] MEDS ORDERED: ATORVASTATIN 40 MG TAB PO SCH (13:00)
--- NOTE | 2018-12-22 13:07 | Discharge Summary ---
Date of Service December 22, 2018 Admission HPI Per Admitting Provider This is a 63yo F with a PMH of HERRON, venous insufficiency, DDD and other medical problems listed below who presents with chest pain beginning x 3 days. Has had intermittent chest heaviness and pain in arms in the past but it has become more frequent and severe over the past few days. Describes chest pain as heaviness with radiation to back, in between shoulder blades as well as bilateral arms. Pain increases with exertion and improves with rest. Episodes last up to 30 minutes. Some associated diaphoresis. Denies nausea, vomiting or shortness of breath. Denies fever, chills, lightheadedness, dizziness, cough, wheezing, SOB, nausea, vomiting, abdominal pain, dysuria, diarrhea or constipation. Has intermittent leg swelling that is at baseline. Denies personal history of CAD but father from [place] at age 72. Admission Exam Per Admitting Provider General Appearance: WD/WN, vitals as above, NAD, sitting up in bed, pleasant, conversing easily, obese Head: normocephalic, atraumatic Eyes: normal inspection, PERRL, conjunctivae normal, anicteric sclerae ENT: external ear and nose normal, oropharynx normal Neck: trachea midline, no thyromegaly normal visual inspection Respiratory: lungs clear to auscultation, no wheeze, rales, rhonchi. Normal insp/exp effort, no accessory muscle use Cardiovascular: regular rate, rhythm, no murmur, normal peripheral pulses, 1+ BLE edema. Vessels: no JVD or carotid bruit Chest: normal inspection of chest. No chest pain to palpation Abdomen/GI: normal bowel sounds, soft, nontender, no hepatosplenomegaly Extremities/Musculoskelatal: no cyanosis or clubbing, extremities motor strength 5/5 Neurologic: PERRL, EOMI, accommodation nl, no face palsy, no dysarthria CN's II-XI intact bilaterally and moves all extremities Psychiatric: A+Ox3, euthymic affect Skin: no rashes, normal color, warm/dry Principal Diagnosis NSTEMI (non-ST elevated myocardial infarction); Hypertensive Urgency, Multiple vessel Coronary artery disease Discharge Exam Constitutional WD/WN, vitals as above Eyes PERRL, conjunctivae normal, anicteric sclerae EOM intact bilaterally ENMT external ear and nose normal, oropharynx normal Neck normal visual inspection Respiratory normal respiratory effort, lungs clear to auscultation Cardiovascular Rate/Rhythm: regular rhythm and + bradycardic Gastrointestinal (Abdomen) normal bowel sounds, soft, nontender, no hepatosplenomegaly Musculoskeletal Head/Neck/Chest: normocephalic and head atraumatic Neurologic PERRL, EOMI, accommodation nl, no face palsy, no dysarthria CN's II-XI intact bilaterally Psychiatric A+Ox3, euthymic affect Discharge Data Allergies Allergy/AdvReac Type Severity Reaction Status Date / Time No Known Allergies Allergy Verified 12/20/18 15:45 Consultations 12/20/18 15:54 ED Decision to Admit Stat 12/20/18 20:37 Consult Cardiology Routine 12/21/18 11:39 Consult Cardiac Catheterization Routine Procedures Performed Operation Date: 12/21/18 12:00 Actual Procedures p Cath, Left with Cors and Vent - Gal Pires MD s Cineradiography w/Routine Exam - Gal Pires MD Ordered Studies 12/21/18 12:00 CL Cath Imgs for PACS use only Routine 12/21/18 13:58 US carotid doppler BI Routine Hospital Course (1) NSTEMI (non-ST elevated myocardial infarction): -Patient presented to [facility] with chest discomfort and NSTEMI (Non ST Elevation Myocardial Infarction) ; was initially started on heparin IV with aspirin, metoprolol, isosorbide -ECHO:Normal LV size and wall thickness, EF> 70%, no segmental LV wall motion abnormality, Grade I diastolic dysfunction -Cardiac cath revealed multivessel coronary artery disease along with left main disease -Cardiology have called [facility] appointment line to set up CT surgery consultation for CABG (Coronary artery bypass surgery) as an outpatient Patient's discharge medications of aspirin 81 mg daily, metoprolol tartrate 25 mg twice a day, and isosorbide mononitrate 30 mg daily, atorvastatin 40 mg daily sent electronically to [facility] [address] [place] [id number] Other follow ups 12/27/2018 1:00 PM Provider Siobhan Thomas MD Department Internal Medicine [facility] Address: [address] [place] [address] [place] [address] (If blood pressure is elevated while on discharge medication regimen, then primary care doctor can add KUMAR inhibitor medication) 01/10/2019 2:00 PM Provider Bobby Olivo Jr., DO Department Cardiology, [facility] Address: [address], [place] [address] (2) Multiple vessel coronary artery disease: Cardiac Cath on 12/21/18 Findings: LM -40% distal left main LAD -moderate caliber vessel, calcified mild proximal disease, 95% focal mid stenosis just after takeoff of small second diagonal, distal luminal irregularities. Small second diagonal with severe ostial stenosis Circumflex -moderate caliber vessel, 95% focal mid segment stenosis prior to takeoff of moderate caliber OM 2. OM 2, OM 3 without significant disease RCA -moderate caliber, dominant, 50 to 60% lateproximal stenosis, 60% distal stenosis just prior to bifurcation with PDA, posterior AV branch (Summary: 1. Severe multi-vessel coronary artery disease -40% distal left main 95% mid LAD 95% mid circumflex 50 to 60% lateproximal RCA and 60% distal RCA stenosis prior to bifurcation with PDA) (3) Hypertensive urgency: -Blood Pressure 205/105 on presentation -hypertensive urgency resolved with anti-hypertensives -currently the blood pressure is controlled Morbid Obesity BMI: 44 Code status: FULL Discharge Diagnosis: NSTEMI (non-ST elevated myocardial infarction); Hypertensive Urgency, Multiple vessel Coronary artery disease Total Time Total Time Spent Total Time Spent (In Minutes): 40 minutes Total Time Includes: Examination of the Patient, Discharge Planning, Medication Reconciliation and Communication With Other Providers Discharge Plan Discharge Items Patient Disposition: Home - Self-Care Reason For Visit: NSTEMI Discharge Diagnosis: NSTEMI (non-ST elevated myocardial infarction); Hypertensive Urgency; Multiple Vessel Coronary Artery Disease Condition on Discharge: Good Activity: Resume your previous activity Non-emergency contact: Primary Care Provider and [employer] Call non-emergency contact if: you have any medication questions Follow-up/Referrals: PCP,NO [Primary Care Provider] - Diet: Heart Healthy Addtl Attending Provider Instructions: Patient presented to [facility] with chest discomfort and NSTEMI (Non ST Elevation Myocardial Infarction) Cardiac cath revealed multivessel coronary artery disease along with left main disease Cardiology have called [facility] appointment line to set up CT surgery consultation for CABG (Coronary artery bypass surgery) as an outpatient Patient's discharge medications of aspirin 81 mg daily, metoprolol tartrate 25 mg twice a day, and isosorbide mononitrate 30 mg daily, atorvastatin 40 mg daily sent electronically to [facility], [place] [id number] Other follow ups 12/27/2018 1:00 PM Provider Siobhan Thomas MD Department Internal Medicine [facility] Address: [address] [place] [address] , [place] [address] (If blood pressure is elevated while on discharge medication regimen, then primary care doctor can add KUMAR inhibitor medication) 01/10/2019 2:00 PM Provider Bobby Olivo Jr., Department Cardiology, [facility] Address: [address] [place] [id number] Pending Studies at Discharge: No Stand-Alone Forms: Call Back Authorization, [facility] Medications and DC Order Prescriptions: New isosorbide mononitrate 30 mg Tablet Extended Release 24 Hr 30 mg PO QAM 30 Days Qty: 30 RF: 0 aspirin [Ecotrin Low Strength] 81 mg Tablet,Delayed Release (Dr/Ec) 81 mg PO QAM 30 Days Qty: 30 RF: 0 metoprolol tartrate 25 mg Tablet 25 mg PO BID 30 Days Qty: 60 RF: 0 atorvastatin 40 mg Tablet 40 mg PO QAM 30 Days Qty: 30 RF: 0 Continued multivitamin Tablet 1 tab PO DAILY RF: 0 calcium carbonate [Calcium 500] 500 mg calcium (1,250 mg) Tablet 500 mg PO DAILY RF: 0 Discharge Orders: Discharge Order (Routine); Ordered 12/22/18 Ordered By: Jabier Hancock Admission Data Admit Date/Time: 12/20/18 17:01 Attending Provider: Jabier Hancock Admit Provider: Sedrick Avila Primary Care Provider: PCP,NO Other Providers: Sedrick Avila ; Bobby Olivo ; Gal Pires
[2018-12-22] MEDS ORDERED: METOPROLOL TARTRATE 25 MG TAB PO SCH (21:00)
== END 2018-12-22 14:59 | disposition home or self-care (01) | DRG 281 ==
LOC: ED 13:17 → SUATTDRO 17:01 → 2S 17:01